=== PATIENT | female | born 1955 | race Caucasian/White ===

== ENCOUNTER 2020-04-10 06:47 | Day surgery (SDC) | payer OTHER, SELFPAY ==
[~2020-04-10] VITALS: Ht 154.9 cm; Wt 73.0 kg
[2020-04-10] MEDS ORDERED: MIDAZOLAM HCL 2 MG/2 ML VIAL (VERSED) IVP ONE (06:48)
[2020-04-10] MEDS ORDERED: SIMETHICONE 40 MG/0.6 ML ML PO ONE (06:48)
[2020-04-10] MEDS ORDERED: fentaNYL CITRATE/PF 100 MCG/2 ML AMP IVP ONE (06:48)
[2020-04-10] MEDS ORDERED: BENZOCAINE 20% 0.5mL UD SPRAY MM ONE (07:18)
[2020-04-10] MEDS ORDERED: SIMETHICONE 40 MG/0.6 ML ML ONE (07:18)
[2020-04-10] MEDS ORDERED: MIDAZOLAM HCL 5 MG/5 ML VIAL ONE (07:19)
[2020-04-10] MEDS ORDERED: fentaNYL CITRATE/PF 100 MCG/2 ML AMP ONE (07:19)
[2020-04-10 12:41] VITALS: BP_SYST 123
== END 2020-04-10 22:37 | disposition home or self-care (01) ==
LOC: SDS 06:47 → SMU 06:48 → SDS 22:37
PROVIDERS: ATTEND Internal Medicine
DX: D12.4 Benign neoplasm of descending colon (principal); K57.30 Diverticulosis of large intestine without perforation or abscess without bleeding; K62.1 Rectal polyp; D64.9 Anemia, unspecified; E07.9 Disorder of thyroid, unspecified; J45.909 Unspecified asthma, uncomplicated; I10 Essential (primary) hypertension; Z88.0 Allergy status to penicillin; Z88.5 Allergy status to narcotic agent; Z20.828 Contact with and (suspected) exposure to other viral communicable diseases
CPT/HCPCS: 36415; 43239; 45380; 45385; 87081; 88305; 88312; 99152; 99153; G0378; J2250; J3010; J3465; J7030; U0003